=== PATIENT | female | born 2005 | race Caucasian/White ===

== ENCOUNTER 2025-05-12 09:58 | Emergency (ER) | payer OTHER, SELFPAY ==
[2025-05-12 10:11] VITALS: BP 100/70; PULSE 100; RESP 16; TEMP 37; O2SAT 100; BMI 36.8
--- NOTE | 2025-05-12 10:18 | PD.EDRME ---
Rapid Medical Screening Exam E Arrival date/time: 05/12/25 09:58 This is a 19-year-old female that comes into the emergency room with complaints of left leg swelling. Patient was seen at the clinic and was told to come to the emergency room for an ultrasound. Patient has a long history. Patient has mood disorder, diabetes, high blood pressure, chronic kidney disease stage IV per paperwork. Patient currently is part of [facility] and lives in a home in [place]. Patient has care worker at bedside. Patient does not verbalize any other complaints. I have greeted and performed a focused initial assessment of this patient. Initial appropriate labs ordered at this time. A comprehensive ED assessment and evaluation of the patient and analysis of all test and completion of medical decision making process will be conducted by additional ED provider. Chief Complaint: Extremity Problem,Nontraumatic Time Seen by Provider: 05/12/25 10:14 Vital signs: Vital Signs Temperature 98.6 F 05/12/25 10:11 Pulse Rate 100 05/12/25 10:11 Respiratory Rate 16 05/12/25 10:11 Blood Pressure 100/70 05/12/25 10:11 Pulse Oximetry (%) 100 05/12/25 10:11 Oxygen Delivery Method Room Air 05/12/25 10:11
--- NOTE | 2025-05-12 11:35 | XR_ITS ---
Examination: Duplex scan of the lower extremity, unilateral left Date and time of exam: May 12, 2025 1145 hours Indications: Left leg swelling and pain today. Technique: Duplex scan of the extremity veins using B-mode/grayscale imaging and Doppler spectral analysis and color flow Attention is directed to internal echogenicity, compression and augmentation involving these veins, color flow assessment, spectral analysis Findings: Positive for nonocclusive thrombus involving the entire deep venous system Impression: Nonocclusive thrombus involving the entire deep venous system
[2025-05-12 13:46] LABS: Collection Type, Urine Voided
[2025-05-12 13:51] LABS: Bilirubin,Urine Negative (Negative); Blood,Urine Negative (Negative); Clarity,Urine Clear (Clear/Hazy); Color,Urine Yellow (Lt Yel-Yel); Culture Indicated,Urine Not Indicated; Glucose, Urine Negative (Negative); Hyaline Casts,Urine < 1 /hpf (0-1); Ketones,Urine Negative (Negative); Leukocyte Esterase,Urine Positive (Negative); Nitrite,Urine Negative (Negative); PH,Urine 6.0 (5.0-7.0); Protein,Urine Trace (Neg - Trace); RBC,Urine 1 /hpf (0-3); Specific Gravity,Urine 1.015 (1.001-1.035); Squamous Epithelial Cell,Urine 2 /hpf (0-5); Urobilinogen,Urine Negative mg/dL (0.0-1.0); WBC,Urine 9 /hpf (0-5)
[2025-05-12 14:33] LABS: Basophils # (Auto) 0.0 Thou/mm3 (0.0-0.2); Basophils % (Auto) 0 % (0-2.5); Eosinophils # (Auto) 0.1 Thou/mm3 (0.0-0.5); Eosinophils % (Auto) 1 % (0-10); Hematocrit 29.8 % (36.0-46.0); Hemoglobin 9.6 g/dL (12.0-16.0); Immature Granulocytes Auto 0.23 Thou/mm3 (0.00-0.00); Lymphocytes # (Auto) 3.2 Thou/mm3 (1.0-4.8); Lymphocytes % (Auto) 21 % (10-50); Mean Corpuscular HGB Conc 32.2 g/dl (31.0-37.0); Mean Corpuscular Hemoglobin 29.4 pg (25.0-35.0); Mean Corpuscular Volume 91 fL (80-100); Monocytes # (Auto) 2.0 Thou/mm3 (0.0-0.8); Monocytes % (Auto) 14 % (0-12); Neutrophils # (Auto) 9.5 Thou/mm3 (1.8-7.7); Neutrophils % (Auto) 63 % (37-80); Nucleated Red Blood Cell # 0.00 Thou/mm3 (0.00-0.00); Nucleated Red Blood Cell % 0 /100 WBC (0); Platelet Count 233 Thou/mm3 (140-440); RDW Standard Deviation 42.9 fL (36.4-46.3); Red Blood Count 3.27 Miln/mm3 (4.00-5.20); White Blood Count 15.1 Thou/mm3 (4.5-11.0)
[2025-05-12 14:52] LABS: INR 1.1 (0.9-1.3); Prothrombin Time 12.0 Seconds (9.0-12.2)
[2025-05-12 14:55] LABS: Alanine Aminotransferase 12 U/L (10-49); Albumin, Serum 3.9 gm/dL (3.5-5.0); Albumin/Globulin Ratio 1.0 (1.2-2.2); Alkaline Phosphatase 79 U/L (46-116); Anion Gap 13 (7-16); Aspartate Amino Transferase 19 U/L (0-34); BUN/Creatinine Ratio 15 Ratio (12-20); Bilirubin,Total 0.3 mg/dL (0.3-1.2); Blood Urea Nitrogen 59 mg/dL (9-23); Calcium 10.1 mg/dL (8.3-10.6); Calcium (Corrected) 10.2 mg/dL (8.5-10.1); Carbon Dioxide 25.4 mMol/L (20.0-31.0); Chloride 98 mMol/L (98-107); Creatinine (Component) 4.0 mg/dL (0.6-1.3); Estimated Creatinine Clearance 29.1 mL/min (>60); Globulin 4.1 gm/dL (2.3-3.5); Glucose 325 mg/dL (74-106); Osmolality,Calculated 301 (275-295); Potassium 4.8 mMol/L (3.4-5.1); Sodium 136 mMol/L (136-145); Total Protein 8.0 gm/dL (5.7-8.2); eGFR 16 See Note
--- NOTE | 2025-05-12 14:56 | EDNOTE_ITS ---
<Statement entered by Sammi Moore MD - 05/13/25 06:24> As co-signing physician, I was present and available for consult prn. I concur with the plan and care as documented by the midlevel provider. ED General RME/HPI General Chief complaint: Extremity Problem,Nontraumatic Stated complaint: Left leg swollen since yesterday Time Seen by Provider: 05/12/25 10:14 Arrival date/time: 05/12/25 09:58 RME / HPI RME / HPI narrative: 05/12/25 09:58 This is a 19-year-old female that comes into the emergency room with complaints of left leg swelling. Patient was seen at the clinic and was told to come to the emergency room for an ultrasound. Patient has a long history. Patient has mood disorder, diabetes, high blood pressure, chronic kidney disease stage IV per paperwork. Patient currently is part of [facility] and lives in a home in [place]. Patient has care worker at bedside. Patient does not verbalize any other complaints. I have greeted and performed a focused initial assessment of this patient. Initial appropriate labs ordered at this time. A comprehensive ED assessment and evaluation of the patient and analysis of all test and completion of medical decision making process will be conducted by additional ED provider. 19-year-old female with past medical history of IDDM, seizure disorder, CKD stage IV, and psychiatric disorder comes into the ED with chief complaint of left leg swelling for the past day. Patient was accompanied by caregiver as patient is part of the [facility] and is conserved. Patient stated that she has not been mobile and has been pretty active except for yesterday where she was more tired and was in bed more than usual. She stated that she has been having left lower extremity pain for the past day and that today she woke up with left lower extremity swelling. Caregiver who was at bedside stated that patient is pretty active and that she is not on any oral contraceptives or any forms of contraceptives at this time. Patient does not have a history of cancer, but is on aripiprazole and olanzapine for any psychiatric disorders. Otherwise denies any trauma, fevers, chest pain, shortness of breath, abdominal pain, diarrhea, or burning sensation urination. Denies any smoking, drugs, alcohol. Related Data Previous Rx's ?Medication ?Instructions ?Recorded apixaban 5 mg tablet (Eliquis) 5 mg PO BID DVT #74 ta bs 05/12/25 Allergies Allergy/AdvReac Type Severity Reaction Status Date / Time haloperidol (From Haldol) Allergy Verified 05/12/25 10:04 Review of Systems Review of Systems Systems Reviewed: All systems reviewed, normal except as documented Past Medical History Past Medical History Comments PMH COMMENT: PMH: Seizure disorder, psychiatry disorder, IDDM, and CKD stage IV Social Hx: Denies any smoking, drugs, alcohol Medications: Aripiprazole, divalproex, olanzapine, insulin, fenofibrate ED Exam Narrative Physical exam: Gen: A&O X 3, NAD HEENT: NCAT, EOMI, Pupils reactive OSMIN, not icteric. External ears normal. No rhinorrhea. Moist mucous membranes. Neck: Supple, full range of motion, no observable masses, No meningeal sign. Lungs: No Respiratory distress, clear bilateral. CV: RRR, no murmurs. Abdomen: Soft, nondistended, No rebound tenderness. MSK: No joint swelling, no redness, peripheral pulses presents, lumbar with no edema.Left lower extremity swollen and all the way up to the thigh, nonpitting, nonpainful Skin: No rashes, petechiae, lesions.. Neuro: No focal neurological deficits appreciated, sensory and motor intact. Psych: Cooperative, appropriate mood and effect. Course Quality Measures none Orders Category Date Time Status US venous doppler LE LT Stat Exams 05/12/25 11:35 Completed CBC Stat Lab 05/12/25 14:15 Completed CRP [C-Reactive Protein] Stat Lab 05/12/25 14:15 Completed Comprehensive Metabolic Panel Stat Lab 05/12/25 14:15 Completed PT [Prothrombin Time with INR] Stat Lab 05/12/25 14:15 Completed Urinalysis, C/S if Indicated Stat Lab 05/12/25 13:36 Completed Vital Signs Vital signs: Vital Signs Temperature 98.6 F 05/12/25 10:11 Pulse Rate 100 05/12/25 10:11 Respiratory Rate 16 05/12/25 10:11 Blood Pressure 100/70 05/12/25 10:11 Pulse Oximetry (%) 100 05/12/25 10:11 Oxygen Delivery Method Room Air 05/12/25 10:11 Discharge Plan Plan Patient Disposition: HOME (Self Care) Prescriptions/Referrals Prescriptions/Med Rec: New Eliquis 5 mg tablet 5 mg PO BID Qty: 74 0RF Rx Instructions: Take 10 mg twice daily for 7 days followed by 5 mg twice daily. Referrals: Leyla Frey PA-C [Primary Care Provider] - In 1 week Problem List Clinical Impression: Deep vein thrombosis of lower extremity Patient/Caregiver Discharge Instructions Other Activity Instructions:: Follow-up with primary care physician within 2 to 3 days Would recommend outpatient workup for hypercoagulability including, but not limited to sickle cell disease You have been started on Eliquis 10 mg twice daily for the next 7 days then followed by 5 mg twice daily until further assessed by your primary care physician as your psychiatric medications may be increasing your predisposition to blood clots versus a could be unprovoked requiring greater than 3 months of treatment. Remain active and avoid prolonged time in bed immobile. Elevate leg when resting You can use warm compresses in the left leg You can use compression stockings Come back to the ER if symptoms persist or worsen. Education Materials: ED Deep Vein Thrombosis (DVT) Print Language: Romanian Stand Alone Forms: [facility] Award Info., Patient Portal Info Letter MDM Narrative MDM hospital course: Patient was seen and evaluated upon arrival to the room by myself. Diagnostic labs and imaging were reviewed. Discussed with the patient that her ultrasound did show that she did have a DVT which involved the entire deep venous system. Patient's WBC were mildly elevated at 15.1, but this was likely reactive secondary to the DVT. Patient's hemoglobin was 9.6. Discussed with patient the possibility of DVT being caused by autoimmune diseases versus regulatory disorders versus possible sickle cell disease. Prescribed to the patient Eliquis for DVT treatment. Patient's caregiver and patient agree with the plan. At this time we will discharge patient back home. Risk were discussed with the patient and caregiver about starting Eliquis which included an possible bleeding and the increased risk of intracranial bleeding if the patient had a fall. They understood the risk and at this time that benefits outweigh risks. Patient's caregiver reached out after patient had been discharged and stated that patient's [facility] did not have the medication it had therefore requested that the prescription be sent to a different pharmacy. Prescription was sent to a different pharmacy at this time. Again patient called that the pharmacy did not have the starter pack available. Prescribed the 5 mg with instructions to start 10 mg twice daily for 7 days followed by 5 mg twice daily afterwards. Case disclosed with Attending Dr. Teresa Summers PGY2 Disclaimer: Even though this this note was dictated by speech recognition and even though it was carefully revised there may still be minor errors in butt scription due to voice recognition software.
[2025-05-12 14:59] VITALS: BP 99/69; PULSE 87; RESP 16; TEMP 36.7; O2SAT 99
[2025-05-12 15:06] LABS: C-Reactive Protein 10.3 mg/dL (0.0-0.9)
[2025-05-12 15:38] VITALS: BP 123/75; PULSE 91; RESP 18; TEMP 36.6; O2SAT 98
== END 2025-05-12 15:42 | disposition home or self-care (01) ==
PROVIDERS: Nurse Practitioner Family; Emergency Provider Emergency Medicine; PCP Physician Assistant
DX: I82.402 Acute embolism and thrombosis of unspecified deep veins of left lower extremity (principal); E11.22 Type 2 diabetes mellitus with diabetic chronic kidney disease; N18.4 Chronic kidney disease, stage 4 (severe)
CPT/HCPCS: 36415; 80053; 81001; 85025; 85610; 86140; 93971; 99283

== ENCOUNTER → 2025-08-20 | Outpatient (CLI) | payer MEDICARE, OTHER, SELFPAY ==
--- NOTE | 2025-08-20 14:26 | XR_ITS ---
EXAMINATION: Ankle, left 3 views. Technique: Ankle AP, oblique, lateral 3 views Date and time of exam: August 20, 2025, 1508 hours INDICATIONS: Injury to the ankle 2 weeks ago, ankle pain. FINDINGS: Lateral malleolar soft tissue swelling No fracture or dislocation IMPRESSION: No fracture or dislocation
--- NOTE | 2025-08-20 14:26 | XR_ITS ---
Examination: Foot, left, 3 views Technique: AP, oblique, lateral views foot, 3 views Date and time of exam: August 20, 2025, 1511 hours INDICATIONS: Injury to the foot 2 weeks ago, foot pain. FINDINGS: Normal bone density. No acute fracture No dislocation Pes planus IMPRESSION: No acute fracture
== END | disposition home or self-care (01) ==
PROVIDERS: PCP Internal Medicine Infectious Disease; Referring Provider Nurse Practitioner Family; Visit Provider Nurse Practitioner Family
DX: S93.402A Sprain of unspecified ligament of left ankle, initial encounter (principal); S99.922A Unspecified injury of left foot, initial encounter; X58.XXXA Exposure to other specified factors, initial encounter
CPT/HCPCS: 73610; 73630